=== PATIENT | female | born 2005 | race Two or more races ===

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

== ENCOUNTER 2025-01-02 15:50 | Emergency (ER) | payer OTHER, SELFPAY ==
--- OUTSIDE RECORDS SUMMARY | 2025-01-02 15:52 | XMS_ITS | Clinical Summary ---
Author Organization [facility] Address [address] [place] [address] Care Team Providers Care Branding Machine Tender Name Role Phone Pcp, No Primary Care Provider Unavailabl e Allergies No known active allergies Medications ferrous sulfate, 65 mg elemental, 324 mg (65 mg iron) Delayed-Release tablet Take 324 mg by mouth. Active Active Problems Problem Noted Date Diagnosed Date Generalized anxiety disorder 12/29/2023 Anorexia nervosa, restricting type 02/06/2022 Chronic midline low back pain without sciatica 1 04/05/2020 Adolescent idiopathic scoliosis of thoracolumbar region 01/12/2021 Encounters Date Type Department Care Team Description 12/24/2024 Telephone [facility] Orthopedics [facility] [address] [address] [place] [id number] Kanika Rodríguez Appointment 12/23/2024 Telephone [facility] Orthopedics [facility] [address] [place] [address] [address] [place] [phone] Kanika Grover PA Imaging 12/18/2024 4:30 PM CDT Ancillary Procedure [facility] [id number] [place] [address] 12/18/2024 Travel 12/14/2024 Travel 12/12/2024 4:10 PM CDT Ancillary Procedure [facility] [address] [facility] [address] [place] [address] 12/12/2024 3:00 PM CDT Office Visit [facility] [address] [place] [address] Kanika Grover PA Hip Pain/problem (R) 12/12/2024 1:45 PM CDT Office Visit [facility] [address] [place] [address] Jackie River, DIRECTOR OF HOTEL OPERATIONS Lump (Lump in right groin/x2 days/increased in size since it was initially found) 12/12/2024 Travel 11/10/2024 Orders Only [facility] [address] [place] [address] Sylvain Tamayo MD 1 scan: (1-Ord) DILLON, FERRITIN, 11/08/2024 11/08/2024 Orders Only [facility] Scanner 1 scan: (1-Ord) [facility], [facility], 11/08/2024 11/03/2024 Orders Only [facility] [address] [place] [address] Sylvain Tamayo MD Lab (Outside orders/) from Last 3 Months Immunizations Immunization Administration Dates Next Due COVID-19 vaccine (PublicBeta NTCaratLane 30mcg/0.3mL) KACEY JACOBSON 07/15/2020 DTaP 07/26/2010, 7,04/08/2006,02/05,2005 DTaP-HIB (TriHIBIT) 01/13/2007 HIB PRP-OMP (PedvaxHIB) 02/05/2006 HIB-HepB (Comvax) 2005 HPV 9 (Gardasil 9) 12/08/2015,01/18/2015, 015 Hepatitis A (Peds) 10/07/2007,10/14/2006 Hepatitis A, Unspecified 10/07/2007,10/14/2006 Hepatitis B (Peds) 04/08/2006,2005 Hepatitis B, Unspecified 04/08/2006,2005,0 2005 Hib Conjugate, Unspecified 01/13/2007,02/05/2006 ,2005 Human Papilloma Virus Vaccin e, Unspecified 12/08/2015,01/18/2015,11/22/2014 INFLUENZA, IIV3 PF (AGE >= 6 MO) 12/09/2008,12/02 Inactivated Polio Vaccine 07/26/2010,10/2006,02/05/2006,12/04 Influenza A (H1N1), Inactivated 11/28/19 19,12/03/2017,12/12/2016,11/14,12/26/2013,11/16/2013,02/10/2013 ,12/14/2011,11/12/2010,01/02/2009,01/01,05/06/2006,04/08/2006 Influenza A (H1N1), Inactiva yvrose (Age >=3 Years) 03/09/2009 Influenza Virus, Unspecified 11/13/2022, 12/01/2021,11/29/2021,12/14,11/07/2019 Influenza, IIV3 (Age >=3 years) 01/13/2007,05/06,04/08/2006 Influenza, IIV4 11/29/2021,,11/07/2019,11/27,12/03/2017,12/12/2016,11/14/2014 ,02/10/2013 Influenza,CCIIV4 PRESERV FREE 11/13/2022 Influenza,LAIV3 Live Intrana dalila (Flumist) 12/14/2011,11/12/2010,12/26/2009 Influenza,LAIV4 Live Intrana dalila (Flumist) 11/16/2013 MENINGOCOCCAL VACCINE (MENQU ADFI 0.5ML) 2YO+ POLYSACCHARIDE PF 02/06/2022 MMR 07/26/2010,10/14/2006 Measles 07/26/2010,10/14/2006 Meningococcal Mcv4, Unspecif ied Formulation 01/28/2017 Meningococcal Vaccine (Menactra) 02/06/2022,01/02 Meningococcal, Unspecified 02/06/2022 Mumps 07/26/2010,10/14/2006 Pneumococcal conj 7-Valent (Prevnar 7) 1 03/15/2006,04/08/2006,02/05/2006,12/04 Pneumococcal, Unspecified 09/29/2009(Deferred: P atient Refused) Rotavirus Pentavalent (ROTATEQ) 04/08/2006,02/05,2005 Rotavirus, Unspecified 07/26/2010,10/14/2006,08/2006 Rubella 07/26/2010,10/14/2006 Tdap 01/28/2017,01/28/2007 Varicella Vaccine 07/26/2010,10/14/2006 Family History Medical History Relation Name Comments Good Health Father Unknown Maternal Grandfather Unknown Maternal Grandmother Good Health Mother Relation Name Status Comments Father Maternal Grandfather Maternal Grandmother Mother Social History Tobacco Use Types Packs/Day Years Used Date Smoking Tobacco: Never Passive Smoke Exposure: Never Smokeless Tobacco: Never Tobacco Cessation:Counseling Given: No Alcohol Use Standard Drinks/Week Comments Not Currently 0 (1 standard drink = 0.6 oz pur e alcohol) PHQ-2 Answer Date Recorded PHQ-2 TOTAL SCORE 0 12/29/2023 Social Connections Answer Date Recorded Do you often feel lonely or isolated from those around you? 0 12/12/2024 Financial Resource Strain Answer Date R ecorded Difficulty of Paying Living Expenses 3 12/12/2024 Difficulty of Paying Living Expenses Not on file 12/12/2024 Food Insecurity Answer Date Recorded Do you worry your food will run out before you are able to buy more? 1 12/12/2024 Transportation Needs Answer Date Record ed Does lack of transportation keep you from medica l appointments? 1 12/12/2024 Does lack of transportation keep you from work, meetings or getting things that you need? 1 12/12/2024 Housing Stability Answer Date Recorded What is your housing situation today? 1 12/12/2024 Utilities Answer Date Recorded Do you have trouble paying f or utilities (for example, heat, electricity, water, phone)? 1 12/12/2024 Comments No Sex and Gender Information Value Date Recorded Sex Assigned at Female 02/03/2024 8:57 PM DINKEY OPERATOR [place] Legal Sex Female 1:22 PM CDT Gender Identity Female 02/03/2024 8:57 PM DINKEY OPERATOR [place] Sexual Orientation Not on file Obstetrics History Last Filed Vital Signs Vital Sign Reading Time Taken Comments Blood Pressure 112/74 12/12/2024 3:36 PM CDT MAP 89 Pulse 70 12/12/2024 3:36 PM CDT Temperature 36.7 C (98 F) 12/12/2024 3:36 PM CDT Respiratory Rate 14 12/12/2024 3:36 PM CDT Oxygen Saturation 97% 12/12/2024 3:36 PM CDT Inhaled Oxygen Concentration - - Weight 55.8 kg (123 lb) 12/12/2024 1:51 PM CDT Height 166.2 cm (5' 5.43) 03/30/2024 10:[address] Body Mass Index - - Plan of Treatment Upcoming Encounters Date Type Department Care Team (Late st Contact Info) Description 02/07/2025 3:15 PM DINKEY OPERATOR [place] Appointment [facility] [place] [address] [phone] [id number] [place] [address] [facility] [address] [place], [place] [id number] Health Maintenance Due Date Last Done Comments Well Child Check for age 3-20 09/04/2008 HIV for age 15-65 2020 Hepatitis C screening for age 18-79 10/06/2023 Influenza Vaccine (#1) 2024 3, 11/13/2022, 12/01/2021, Additional history exists Depression screening for age 12+ 12/29/2024 12/30/2023, 12/29/2023 BMI (ht and wt on same day) for age 18+ 03/30/2025 03/30/2024, 12/29/2023 Tetanus booster 01/28/2027 01/28/2017, 01/28/2007 RSV vaccine for adults or (1 - 1-dose 75+ series) 2080 Hepatitis B series for 19+ Completed 04/08, 04/08/2006, 2005, Additional history exists Pneumococcal series for age 6-49 Aged Out 01/13/2007, 04/08/2006, 02/05/2006, Additional history exists No longer eligible based on patient's age to complete this topic HPV series for age 9-45 Completed 12/08/19 16, 12/08/2015, 01/18/2015, Additional history exists Meningococcal series for age 11-21 Completed 02/06/2022, 02/06/2022, 02/06/2022, Additional history exists Procedures Procedure Name Priority Date/Time Associated Diagnosis Comments MR HIP RIGHT WO Routine 12/18/2024 4:56 PM CDT Strain of hip flexor, right, initial encounter Hip pain, right Supsected enlarged lymph node- right femoral XR HIP 1 VIEW W PELVIS RIGHT STAT 12/12/2024 4:14 PM CDT Hip pain, right FERRITIN Routine 11/08/2024 12:00 AM CDT Other fatigue SCAN-LABORATORY REPORT 11/08/2024 12:00 AM CDT from Last 3 Months Results * MR HIP RIGHT WO (12/18/2024 4:56 PM CDT) Anatomical Region Laterality Modality HIPR Magnetic Resonan ce 12/19/2024 7:14 AM CDT Impressions 12/19/2024 7:14 AM CDT 1. Resolution of prior small area of bone marrow edema involving the right medial proximal femur just below the level of the lesser trochanter. No femoral fracture. No new areas of bone edema. 2. Subtle slight periosteal limited edema along the medial right proximal femur below the lesser trochanter and in the region of adductor attachment which may relate to minimal thigh splints (minimal adductor avulsion syndrome periostitis). No significant muscle tearing. 3. No right hip joint effusion. Articular surfaces maintained. Possible tiny tear of the junction of the anterior and anterosuperior acetabular labrum (seen on a single image). Other portions of labrum are intact. Dictated by Jonnathan Reyez MD @ 12/19/2024 6:27:31 AM (Electronically Signed) Narrative 12/19/2024 7:14 AM CDT For Patients: As a result of the Century Cures Act, medical imaging exams and procedure reports are released immediately into your electronic medical record. You may view this report before your referring provider. If you have questions, please contact your health care provider. CLINICAL INDICATION: Right hip pain. Strain of hip flexor. Enlarged lymph node. COMPARISON IMAGING STUDIES: MRI 06/21/2024. Radiographs from 12/12/2024. TECHNICAL: Axial, sagittal and coronal PDFS small field of view images of the right hip. Coronal and axial T1 and PDFS large field of view images of the entire pelvis. 1.5 [facility] MR scanner. FINDINGS: RIGHT HIP: No significant femoral head-neck junction osseous bump. No focal superior acetabular retroversion. The femoral head and acetabular articular surfaces are smooth without focal trickle cartilage defect. There is a possible tiny labral tear seen on a single sagittal PD fat-sat images (e.g. Image number 19 of series 7) present at the junction of the anterior and anterosuperior acetabular labrum. The remainder of the labrum is intact. No paralabral cyst. LEFT HIP: Maintained on the large [id number] images of the entire pelvis. OSSEOUS STRUCTURES: Previously seen small area of mild limited intramedullary bone marrow edema involving the medial right femur just below the lesser trochanter is no longer apparent. There is no new area of intramedullary bone marrow edema. No avascular necrosis. MUSCULOTENDINOUS STRUCTURES AND BURSAE: There is slight thin periosteal limited edema along the medial proximal femur below the lesser trochanter and in the region of adductor attachment which may relate to minimal thigh splints (minimal adductor avulsion syndrome periostitis). No significant tearing. No significant intramuscular edema. Distal gluteal tendons are intact. No trochanteric bursitis. Common hamstring tendons intact. Distal iliopsoas tendons are intact. No iliopsoas bursitis. Conjoined adductor tendons are intact at their medial pubic attachment site. OTHER FINDINGS: Pubic symphysis intact. Sacroiliac joints maintained. INTRAPELVIC CONTENTS: No pelvic fluid collection. Trace pelvic free fluid is likely physiologic. Small inguinal region lymph nodes are unchanged, likely reactive. Procedure Note Jonnathan Reyez MD - 12/19/2024 For Patients: As a result of the Cures Act, medical imagingexams and procedure reports are released immediately into your electronicmedical record. You may view this report before your referring provider.If you have questions, please contact your health care provider. CLINICAL INDICATION: Right hip pain. Strain of hip flexor. Enlarged lymph node. COMPARISON IMAGING STUDIES: MRI 06/21/2024. Radiographs from 12/12/2024. TECHNICAL: Axial, sagittal and coronal PDFS small field of view images of the righthip. Coronal and axial T1 and PDFS large field of view images of theentire pelvis. 1.5 [facility] MR scanner. FINDINGS: RIGHT HIP: No significant femoral head-neck junction osseous bump. No focal superioracetabular retroversion. The femoral head and acetabular articularsurfaces are smooth without focal trickle cartilage defect. There is apossible tiny labral tear seen on a single sagittal PD fat-sat images(e.g. Image number 19 of series 7) present at the junction of the anteriorand anterosuperior acetabular labrum. The remainder of the labrum isintact. No paralabral cyst. LEFT HIP: Maintained on the large [id number] images of the entire pelvis. OSSEOUS STRUCTURES: Previously seen small area of mild limited intramedullary bone marrowedema involving the medial right femur just below the lesser trochanter isno longer apparent. There is no new area of intramedullary bone marrowedema. No avascular necrosis. MUSCULOTENDINOUS STRUCTURES AND BURSAE: There is slight thin periosteal limited edema along the medial proximalfemur below the lesser trochanter and in the region of adductor attachmentwhich may relate to minimal thigh splints (minimal adductor avulsionsyndrome periostitis). No significant tearing. No significantintramuscular edema. Distal gluteal tendons are intact. No trochanteric bursitis. Commonhamstring tendons intact. Distal iliopsoas tendons are intact. Noiliopsoas bursitis. Conjoined adductor tendons are intact at their medialpubic attachment site. OTHER FINDINGS: Pubic symphysis intact. Sacroiliac joints maintained. INTRAPELVIC CONTENTS: No pelvic fluid collection. Trace pelvic free fluid is likely physiologic.Small inguinal region lymph nodes are unchanged, likely reactive. IMPRESSION: 1. Resolution of prior small area of bone marrow edema involving the rightmedial proximal femur just below the level of the lesser trochanter. Nofemoral fracture. No new areas of bone edema. 2. Subtle slight periosteal limited edema along the medial right proximalfemur below the lesser trochanter and in the region of adductor attachmentwhich may relate to minimal thigh splints (minimal adductor avulsionsyndrome periostitis). No significant muscle tearing. 3. No right hip joint effusion. Articular surfaces maintained. Possibletiny tear of the junction of the anterior and anterosuperior acetabularlabrum (seen on a single image). Other portions of labrum are intact. Dictated by Jonnathan Reyez MD @ 12/19/2024 6:27:31 AM (Electronically Signed) us Kanika RODRIGUEZ MR Final Result * XR HIP 1 VIEW W PELVIS RIGHT (12/12/2024 4:14 PM CDT) Anatomical Region Laterality Modality HIPS, HIPR, Pelvis Digital Radio graphy 12/12/2024 5:48 PM CDT Narrative 12/12/2024 5:48 PM CDT For Patients: As a result of the Cures Act, medical imaging exams and procedure reports are released immediately into your electronic medical record. You may view this report before your referring provider. If you have questions, please contact your health care provider. Indication: Right hip pain Technique: One view of the pelvis, one view of the right hip Comparison: Right hip radiographs 04/20/2024, MRI right hip 06/21/2024 Findings/Impression: No acute fracture or malalignment. Hip joint spaces are preserved. The pubic symphysis and sacroiliac joints are congruent. Soft tissues are unremarkable. Dictated by Sabi Sharma MD @ 12/12/2024 5:48:32 PM (Electronically Signed) Procedure Note Sabi Sharma MD - 12/12/2024 For Patients: As a result of the Cures Act, medical imagingexams and procedure reports are released immediately into your electronicmedical record. You may view this report before your referring provider.If you have questions, please contact your health care provider. Indication: Right hip pain Technique: One view of the pelvis, one view of the right hip Comparison: Right hip radiographs 04/20/2024, MRI right hip 06/21/2024 Findings/Impression: No acute fracture or malalignment. Hip joint spaces are preserved. Thepubic symphysis and sacroiliac joints are congruent. Soft tissues areunremarkable. Dictated by Sabi Sharma MD @ 12/12/2024 5:48:32 PM (Electronically Signed) us Kanika RODRIGUEZ GENERAL IMAGING Final Result * SCAN-LABORATORY REPORT (11/08/2024 12:00 AM CDT) us Scanner OTHER Final Result * FERRITIN (11/08/2024 12:00 AM CDT) Blood BLOOD SPECIMEN / Unknown us Sylvain Tamayo MD CHEMISTRY Final Resu lt [employer] [facility] [address] [place] [address], [place] [phone] from Last 3 Months Insurance [facility] Care Teams Branding Machine Tender Relationship Specialty Start Date End Date Pcp, No . PCP - General 11/03/23
--- OUTSIDE RECORDS SUMMARY | 2025-01-02 15:52 | XMS_ITS | Clinical Summary ---
Author Organization [employer] lin Address [address] [place] [address] Care Team Providers Care Data Reviewer Name Role Phone Pcp, No Primary Care Provider [phone] Allergies No known active allergies Medications FLUoxetine (PROzac) 40 MG capsule TAKE 1 CAPSULE BY MOUTH EVERY DAY 02/08/2023 Active ferrous sulfate 324 mg (65 mg iron) TbEC Take 1 tablet (324 mg total) by mouth Active norgestimate-et hinyl estradioL (ORTHO-CYCLEN) 0.25-35 mg-mcg tablet TAKE 1 TABLET BY MOUTH EVERY DAY 02/07/2023 Active Social History Tobacco Use Types Packs/Day Years Used Date Smoking Tobacco: Never Smokeless Tobacco: Never Tobacco Cessation:Counseling Given: Not Answered Comments No Sex and Gender Information Value Date Recorded Sex Assigned at Not on file Legal Sex Female 1:58 PM EST Gender Identity Not on file Sexual Orientation Not on file Last Filed Vital Signs Vital Sign Reading Time Taken Comments Blood Pressure 104/68 03/16/2023 10:00 AM EST Pulse 78 03/16/2023 10:00 AM EST Temperature 36.6 C (97.8 F) 03/16/2023 10:00 AM EST Respiratory Rate 17 03/16/2023 10:00 AM EST Oxygen Saturation 98% 03/16/2023 10:00 AM EST Inhaled Oxygen Concentration - - Weight 52.2 kg (115 lb) 03/16/2023 10:00 AM EST Height 165.1 cm (5' 5) 03/16/2023 10:00 AM EST Body Mass Index 19.14 03/16/2023 10:00 AM EST Body Mass Index Percentile 23.40% 03/16/2023 10: 00 AM EST Growth Chart: [facility] (Girls, 2- 20 Years) Plan of Treatment Not on file Medical Devices Not on file Insurance [facility] Care Teams Data Reviewer Relationship Specialty Start Date End Date Pcp, No PCP - General Family Medicine 03/16/23
--- OUTSIDE RECORDS SUMMARY | 2025-01-02 15:52 | XMS_ITS | Clinical Summary ---
Author Organization [facility] Address [address] [place] [address] Care Team Providers Care Heat Treat Operator Name Role Phone Clinician, Not Found MD Primary Care Provider Un available Source Comments You are receiving this document as you are listed as the primary care provider,follow-up provider, or the patient has been referred to you for consultation.This is in compliance with the Medicare and[facility] EHR Incentive Program,which states Providers who transition their patient to another setting of careor provider of care or refers their patient to another provider of care shouldprovide summary care record for each transition of care or referral. [facility] Allergies No known active allergies Medications ferrous sulfate 324 (65 Fe) MG tablet Take 1 Tablet (324 mg) by mouth. Active Active Problems Problem Noted Date Diagnosed Date Mild restricting type anorexia nervosa Hypokalemia 01/28/2024 Generalized anxiety disorder 12/29/2023 Social History Tobacco Use Types Packs/Day Years Used Date Smoking Tobacco: Never Tobacco Cessation:Counseling Given: Not Answered Alcohol Use Standard Drinks/Week Comments Never 0 (1 standard drink = 0.6 oz pur e alcohol) Comments No Sex and Gender Information Value Date Recorded Sex Assigned at Not on file Legal Sex Female 11:21 AM LINE WORKER Gender Identity Not on file Sexual Orientation Not on file Last Filed Vital Signs Vital Sign Reading Time Taken Comments Blood Pressure 114/73 03/17/2024 10:46 AM LINE WORKER Pulse 74 03/17/2024 10:46 AM LINE WORKER Temperature 36.8 C (98.2 F) 03/17/2024 10:45 AM LINE WORKER Respiratory Rate - - Oxygen Saturation - - Inhaled Oxygen Concentration - - Weight 52.6 kg (116 lb) 03/17/2024 10:45 AM LINE WORKER Height 166.2 cm (5' 5.43) 03/17/2024 10:[address] Body Mass Index 19.05 03/17/2024 10:45 AM LINE WORKER Body Mass Index Percentile 18.27% 03/17/2024 10: 45 AM LINE WORKER Growth Chart: [facility] (Girls, 2- 20 Years) Plan of Treatment Health Maintenance Due Date Last Done Comments Chlamydia 2005 Hep C Screening (Preventive Services) 2005 MenB Immunization Discussion 2005 HIV Screening (Preventive Services) 2021 Adult Preventive Visit 10/06/2023 HepB Vaccine (1) 2024 Influenza Vaccine (#1) 2024 , 11/13/2022, 12/01/2021, Additional history exists DTaP/Tdap/Td Vaccine (7 - Tdap) 01/28/2027 01/28/2017, 07/26/2010, 01/28/2007, Additional history exists Zoster/Shingles Vaccine (1 of 2) 10/06/2055 Hib Vaccine Completed 01/13/2007, 01/01, 02/05/2006, Additional history exists Pneumococcal Vaccine Aged Out 01/13/2007, 04/08/2006, 02/05/2006, Additional history exists No longer eligible based on patient's age to complete this topic HepA Vaccine Completed 10/07/2007, 10/14/2006 IPV (Polio) Vaccine Completed 07/26/2010, 07/08/2006, 02/05/2006, Additional history exists HPV Vaccine Completed 12/08/2015, 01/01, 11/22/2014 MCV4 Vaccine Completed 02/06/2022, 01/28/2017 COVID-19 Vaccine Completed 01/20/2024, 07/15/2020 HGB Completed 01/22/2024 Procedures Procedure Name Priority Date/Time Associated Diagnosis Comments COMPLETE BLOOD COUNT-W/DIFF STAT 01/22/2024 9:08 AM LINE WORKER Mild restricting type anorexia nervosa from Last 3 Months or Most Recently Relevant to Health Maintenance Results * (ABNORMAL) Complete Blood Count-W/Diff (01/22/2024 9:08 AM LINE WORKER) WBC 6.3 3.5 - 10.5 x10(9)/L 01/22/2024 5:05 PM LINE WORKER [facility] RBC 4.82 3.90 - 5.03 x10(12)/L 01/22/2024 5:05 PM LINE WORKER [facility] Hemoglobin 14.6 12.0 - 15.5 g/dL 01/22/2024 5:05 PM LINE WORKER [facility] HCT 44.6(H) 34.9 - 44.5 % 01/22/2024 5:05 PM LINE WORKER [facility] MCV 92.5 80.0 - 100.0 fL 01/22/2024 5:05 PM LINE WORKER [facility] MCH 30.3 27.6 - 33.3 pg 01/22/2024 5:05 PM LINE WORKER [facility] MCHC 32.7 31.5 - 35.2 g/dL 01/22/2024 5:05 PM LINE WORKER [facility] RDW 12.2 11.9 - 15.5 % 01/22/2024 5:05 PM LINE WORKER [facility] Platelets 213 150 - 450 x10(9)/L 01/22/2024 5:05 PM LINE WORKER [facility] Automated NRBC 0 <=0 /100 WBC 01/22/2024 5:05 PM LINE WORKER [facility] Neutrophil Absolute 2.7 1.7 - 7.0 10(9)/L 01/22/2024 5:05 PM LINE WORKER [facility] Lymphocyte Absolute 2.1 1.0 - 4.8 10(9)/L 01/22/2024 5:05 PM LINE WORKER [facility] Monocyte Absolute 1.1(H) 0.2 - 0.9 10(9)/L 01/22/2024 5:05 PM LINE WORKER [facility] Eosinophil Absolute 0.3 0.0 - 0.5 10(9)/L 01/22/2024 5:05 PM LINE WORKER [facility] Basophil Absolute 0.1 0.0 - 0.3 10(9)/L 01/22/2024 5:05 PM LINE WORKER [facility] Immature Granulocyte % 0.2 0.0 - 0.5 % 01/22/2024 5:05 PM LINE WORKER [facility] Blood Venipuncture / Unknown 01/22/2024 9:08 AM LINE WORKER 01/22/2024 4:45 PM [facility] us Tayla Mayers MD LAB_1 Final Result [facility] [address] [place] [address], [facility] from Last 3 Months or Most Recently Relevant to Health Maintenance Insurance [employer] [facility] Care Teams Heat Treat Operator Relationship Specialty Start Date End Date Clinician, Not Found, [place] [address] PCP - General 01/15/24
--- OUTSIDE RECORDS SUMMARY | 2025-01-02 15:52 | XMS_ITS | Clinical Summary ---
Author Organization [facility] Address [address] [place], [place] [id number] Phone Care Team Providers Care Range Ecologist Name Role Phone Elisabeth Becker MD Primary Care Provider [phone] Elisabeth Becker MD Unavailable [phone] Medications * This document contains information received from the source organization and may not represent a complete record from that organization. norgestrel-ethi nyl estradioL (Low-Ogestrel, 28,) 0.3-30 mg-mcg tablet Dose Amount: 1 tab, PO, daily, Dispense Quantity: 84 tab, Refills: 10, Entered: 05/06/23 9:32:00 EST, [id number] 05/06/2023 Active FLUoxetine (PROzac) 10 mg capsule Dose: 10 mg, Dose Amount: 1 cap, PO, daily, Dispense Quantity: 90 cap, Refills: 1, Entered: 09/17/22 17:43:00 EDT, [id number] 09/17/2022 Active FLUoxetine (PROzac) 20 mg capsule Dose: 20 mg, Dose Amount: 1 cap, PO, daily, Dispense Quantity: 90 cap, Refills: 1, Entered: 07/03/22 15:54:00 EDT, [id number] 07/03/2022 Active FLUoxetine (PROzac) 40 mg capsule Dose: 40 mg, Dose Amount: 1 cap, PO, daily, Dispense Quantity: 90 cap, Refills: 1, Entered: 07/15/23 8:54:00 EDT, [id number] 07/15/2023 Active medroxyPROGESTE Kaveh (Provera) 10 mg tablet Dose: 10 mg, Dose Amount: 1 tab, PO, daily, Dispense Quantity: 10 tab, Refills: 3, Entered: 11/12/21 15:05:00 EDT, [id number] 11/12/2021 Active Immunizations Immunization Administration Dates Next Due DTaP 07/26/2010, 7,04/08/2006,02/05,2005 HPV, Unspecified 12/08/2015,01/18/2015, 5 Hep A, Unspecified 10/07/2007,10/14/2006 Hep B, Unspecified 04/08/2006,2005, 006 HiB, unspecified 01/13/2007,02/05/2006, 6 IPV 07/26/2010, 7,02/05/2006,12/04 Influenza, Unspecified 11/13/2022,2021,11/29/2021,12/14,11/07/2019 Meningococcal ACWY, unspecified 02/06/2022 Pfizer Purple Cap SARS-CoV-2 03/14/2021,08/06/19 21,07/15/2020 Pfizer SARS-CoV-2 Bivalent 3 0 mcg/0.3 mL 12/08/2021 Rotavirus, Unspecified 07/26/2010,10/14/2006,08/2006 Tdap 01/28/2017,01/28/2007 Social History Tobacco Use Types Packs/Day Years Used Date Smoking Tobacco: Never Assessed Comments Unknown Sex and Gender Information Value Date Recorded Sex Assigned at Not on file Legal Sex Female 5:32 AM EDT Gender Identity Not on file Sexual Orientation Not on file Last Filed Vital Signs Vital Sign Reading Time Taken Comments Blood Pressure 117/76 07/15/2023 8:41 AM EDT Pulse 111 07/15/2023 8:41 AM EDT Temperature - - Respiratory Rate - - Oxygen Saturation - - Inhaled Oxygen Concentration - - Weight 52 kg (114 lb 10.2 oz) 07/15/2023 8:41 AM EDT Height 166.1 cm (5' 5.39) 07/15/2023 8:41 AM ED T Body Mass Index 18.85 07/15/2023 8:41 AM EDT Body Mass Index Percentile 18.17% 07/15/2023 8:4 1 AM EDT Growth Chart: CDC (Girls, 2- 20 Years) Plan of Treatment Health Maintenance Due Date Last Done Comments Chlamydia and Gonorrhea Screening 2005 HIV Screening 2005 MMR Vaccines (1 of 1 - Standard series) 2006 Varicella Vaccines (1 of 2 - 13+ 2-dose series) 2018 Meningococcal B Vaccine (1 of 2 - Standard) 2021 Hepatitis C Screening 10/06/2023 Influenza Vaccine (#1) 2024 , 12/01/2021, 11/29/2021, Additional history exists DTaP/Tdap/Td Vaccines (7 - Td or Tdap) 01/28/2027 01/28/2017, 07/26/2010, 01/28/2007, Additional history exists Anemia Screening 03/28/2028 03/28/2023 Hepatitis B Vaccines Completed 04/08/2006, 2005, 2005 HIB Vaccines Completed 01/13/2007, 08/2005, 2005 Hepatitis A Vaccines Completed 10/07/2007, 10/15/19 07 IPV Vaccines Completed 07/26/2010, 10/2006, 02/05/2006, Additional history exists Rotavirus Vaccines Aged Out 07/26/2010, 0 10/14/2006, 04/08/2006 No longer eligible based on patient's age to complete this topic HPV Vaccines Completed 12/08/2015, 01/01, 11/22/2014 Meningococcal Vaccine Completed 02/06/2022, 017 Pneumococcal Vaccine: Pediatrics (0 to 5 Years) and At-Risk Patients (6 to 49 Years) Aged Out No longer eligible based on patient's age to complete this topic Procedures Procedure Name Priority Date/Time Associated Diagnosis Comments CBC W/ AUTO DIFFERENTIAL Routine 03/28/2023 11:09 AM EST from Last 3 Months or Most Recently Relevant to Health Maintenance Results * Complete Blood Count with Differential (03/28/2023 11:09 AM EST) nRBC 0.0 0.0 - 0.0 /100 WBC [facility] MPV 10.4 9.5 - 11.7 fL [facility] RDW 12.5 11.9 - 14.6 % [facility] NRBC # 0.00 0.00 - 0.00 K cells/uL [facility] WBC 8.19 4.85 - 9.69 K cells/uL [facility] MCV 90.8 80.5 - 91.8 fL [facility] MCH 29.8 25.7 - 30.6 pg [facility] RBC 4.59 4.07 - 4.90 M cells/uL [facility] MCHC 32.9 31.4 - 34.1 g/dL [facility] Platelets 308 205 - 354 K cells/uL [facility] Hemoglobin 13.7 11.4 - 14.7 g/dL [facility] Hematocrit 41.7 35.3 - 44.1 % [facility] 03/28/2023 11:0 9 AM EST 03/28/2023 3:46 PM EST Sourav Bang MD LAB BLOOD ORDERABLES Final Result Performing Organization Address [facility]/State/[facility] [place] [address], from Last 3 Months or Most Recently Relevant to Health Maintenance Insurance Care Teams Range Ecologist Relationship Specialty Start Date End Date Elisabeth Becker MD [address] [address] PCP - General 10/11/21 Elisabeth Becker MD [address] [address] PCP - Clinical PCP 10/11/21
--- OUTSIDE RECORDS SUMMARY | 2025-01-02 15:52 | XMS_ITS | Encounter Summary ---
Author Organization [facility] Address [address] [place] [address] Drive [address] [place] [address] Phone Care Team Providers Care Election Assistant Name Role Phone Elisabeth Becker MD Primary Care Provider German Castillo MD, DDS Unavailable [email or web address] Elisabeth Becker MD Unavailable [phone] Amada Beebe CNP Primary Care Provider + Encounter Details Date Type Department Care Team (Late st Contact Info) Description 03/22/2022 Procedure Pass MRI, [facility] [place] [address] [facility], [address] [place], [place] [phone] Social History Tobacco Use Types Packs/Day Years Used Date Smoking Tobacco: Never Smokeless Tobacco: Never Comments Unknown Sex and Gender Information Value Date Recorded Sex Assigned at Female 07/02/2024 10:42 AM EDT Legal Sex Female 2:33 PM EDT Gender Identity Female 07/02/2024 10:42 AM EDT Sexual Orientation Straight 07/02/2024 10 :42 AM EDT documented as of this encounter Plan of Treatment Upcoming Encounters Date Type Department Care Team (Late st Contact Info) Description 02/18/2025 10:30 AM EST Office Visit Dane CAVAZOS [facility] [address] [facility], [address] [place], [place] [phone] Adrienne Brandon MD [address] [facility] [address] [place] [address] [email or web address] documented as of this encounter Visit Diagnoses Not on filedocumented in this encounter Care Teams Election Assistant Relationship Specialty Start Date End Date Elisabeth Becker MD [address] [place] [address] [email or web address] PCP - General Pediatrics 11/01/19 09/27/24 Amada Beebe CNP [address] [place] [address] [email or web address] PCP - General Nurse Practitioner 09/28/24 German Castillo MD, DDS [address] [place] [address] [email or web address] baccarat manager 04/18/20 Elisabeth Becker MD [address] [place] [address] [email or web address] Insurance Assigned Provider 06/07/23 documented as of this encounter Additional Source Comments The information contained in this document represents components of the legal health record. It is not the complete legal health record.[facility]
--- OUTSIDE RECORDS SUMMARY | 2025-01-02 15:52 | XMS_ITS | Encounter Summary ---
Author Organization [facility] Address [address] [place] [address] Drive [address] [place] [address] Phone Care Team Providers Care Bituminous Distributor Operator Name Role Phone Elisabeth Becker MD Primary Care Provider German Castillo MD, DDS Unavailable [email or web address] Elisabeth Becker MD Unavailable [phone] Amada Beebe CNP Primary Care Provider + Encounter Details Date Type Department Care Team (Late st Contact Info) Description 01/12/2021 Procedure Pass MRI, [facility] [place] [address] [facility], [address] [place], [place] [phone] Social History Tobacco Use Types Packs/Day Years [...] 10:30 AM EST Office Visit Dane CAVAZOS [facility] [address] [facility], [address] [place], [place] [phone] Adrienne Brandon MD [address] [facility] [address] [place] [address] [email or web address] documented as of this encounter Visit Diagnoses Not on filedocumented in this encounter Care Teams Bituminous Distributor Operator Relationship Specialty Start Date End Date Elisabeth Becker MD [address] [place] [address] [email or web address], [facility] PCP - General Pediatrics 11/01/19 09/27/24 Amada Beebe CNP [address] [place] [address] [email or web address] PCP - General Nurse Practitioner 09/28/24 German Castillo MD, DDS [address] [place] [address] [email or web address] plate stacker hand 04/18/20 Elisabeth Becker MD [address] [place] [address] [email or web address], [facility] Insurance Assigned Provider 06/07/23 documented as of this encounter Additional Source Comments The information contained in this document represents components of the legal health record. It is not the complete legal health record.[facility]
--- OUTSIDE RECORDS SUMMARY | 2025-01-02 15:52 | XMS_ITS | Clinical Summary ---
Author Organization [facility] Address [address] [place] [address] Care Team Providers Care Plaster Mechanic Name Role Phone Elisabeth Becker MD Primary Care Provider [phone] Allergies No known active allergies Social History Tobacco Use Types Packs/Day Years Used Date Smoking Tobacco: Never Assessed Comments Unknown Sex and Gender Information Value Date Recorded Sex Assigned at Female 04/08/2022 9:29 PM EST Legal Sex Female 9:25 PM EST Gender Identity Female 04/08/2022 9:29 PM EST Sexual Orientation Not on file Last Filed Vital Signs Vital Sign Reading Time Taken Comments Blood Pressure 125/82 04/08/2022 9:54 PM EST Pulse 88 04/08/2022 9:54 PM EST Temperature 36.3 C (97.4 F) 04/08/2022 9:54 PM EST Respiratory Rate 18 04/08/2022 9:54 PM EST Oxygen Saturation 99% 04/08/2022 9:54 PM EST Inhaled Oxygen Concentration - - Weight 52 kg (114 lb 10.2 oz) 04/08/2022 9:54 PM EST Height - - Body Mass Index - - Plan of Treatment Health Maintenance Due Date Last Done Comments Blood Pressure 2005 Depression Screening 2009 Chlamydia and Gonorrhea Screening 2020 Meningococcal B Vaccines (1 of 2 - Standard) 2021 Hepatitis C Screening 10/06/2023 COVID-19 Vaccine (2 - 2024- season) 2024 07/15/2020 Influenza Vaccine (#1) 2024 2, 12/14/2020, 11/07/2019, Additional history exists DTaP,Tdap,and Td Vaccines (7 - Td or Tdap) 01/28/2027 01/28/2017, 07/26/2010, 01/13/2007, Additional history exists Meningococcal Vaccines Completed 02/06/2022, 2016 Pneumococcal Vaccine Aged Out No long er eligible based on patient's age to complete this topic Insurance [facility] [place] DORIAN JUÁREZ [place] [id number] [place] JU[place]RE[place] [phone] [facility] Care Teams Plaster Mechanic Relationship Specialty Start Date End Date Elisabeth Becker MD [address] [place] [address] PCP - General Pediatric Medicine 04/08/22
--- OUTSIDE RECORDS SUMMARY | 2025-01-02 15:53 | XMS_ITS | Clinical Summary ---
Author Organization [facility] Address [address] [facility] [address] [place] [address] Phone Care Team Providers Care Senior Media Planner Name Role Phone German Castillo MD, DDS Unavailable [email or web address] Elisabeth Becker MD Unavailable [phone] Amada Beebe CNP Primary Care Provider + Allergies Active Allergy Reactions Criticality Noted Date Comments Pollen Extracts 04/24/2023 Medications ferrous sulfate 324 mg (65 mg [place] iron) TbEC Take 324 mg by mouth daily with breakfast. Active Active Problems Problem Noted Date Diagnosed Date Dysmenorrhea 2024 Assessment & Plan (2024 6:01 AM EDT): Orders: TSH with reflex; Future CBC and differential; Future Basic metabolic panel; Future Ambulatory [facility] Gynecology (Benign) E-Consult Takes iron supplements 2024 Assessment & Plan (2024 6:01 AM EDT): Orders: Iron and iron binding capacity; Future Ferritin; Future Encounter to establish care 09/28/2024 Assessment & Plan (2024 6:01 AM EDT): Anorexia nervosa, restricting type 02/06/2022 Assessment & Plan (2024 6:01 AM EDT): Orders: Ambulatory [facility] Gynecology (Benign) E-Consult Chronic midline low back pain without sciatica 1 04/05/2020 Pain in thoracic spine 01/12/2021 Assessment & Plan (2024 6:01 AM EDT): Adolescent idiopathic scoliosis of thoracolumbar region 01/12/2021 Assessment & Plan (2024 6:01 AM EDT): Immunizations Immunization Administration Dates Next Due COVID-19 (Pre-12/23) Pfizer Vaccine, mRNA, PF 07/15/2020 DTaP 07/26/2010, 7,04/08/2006,02/05,2005 [id number] FORMULATION 019,12/03/2017,12/12/2016,11/14,12/26/2013,11/16/2013,02/10/2013 ,12/14/2011,11/12/2010,01/13/2007,03/0 08/2006,04/08/2006 HPV9 12/08/2015,01/18/2015,11/22/2014 Hepatitis A, ped/adol, 2 dose 10/07/2007, 007 Hepatitis B, unspecified formulation 04/08/2006, 2005,2005 Hib, unspecified formulation 01/13/2007,02/06/20 06,2005 IPV 07/26/2010, 7,02/05/2006,12/04 Influenza Quadrivalent MDCK Preservative Free IM 11/13/2022 Influenza Quadrivalent Prese rvative Free IM 11/29/2021,12/14/2020,11/07/2019 Measles 07/26/2010,10/14/2006 Meningococcal Conjugate Quad rivalent, MenACWY-TT (MCV4) 02/06/2022 Meningococcal MCV4, unspecif ied Formulation 01/28/2017 Meningococcal MCV4P 02/06/2022 Mumps 07/26/2010,10/14/2006 Rotavirus, unspecified formulation 07/26/2010,,04/08/2006 Rubella 07/26/2010,10/14/2006 Tdap 01/28/2017 Zoster recombinant 07/26/2010,10/14/2006 Family History Medical History Relation Comments No Known Problems Father No Known Problems Mother No Known Problems Sister Macular degeneration Neg Hx Relation Status Comments Father Alive Mother Alive Sister Alive Social History Tobacco Use Types Packs/Day Years Used Date Smoking Tobacco: Never Smokeless Tobacco: Never Tobacco Cessation:Counseling Given: Not Answered Alcohol Use Standard Drinks/Week Comments Yes 0 (1 standard drink = 0.6 oz pur e alcohol) occasional Education Answer Date Recorded Are you interested in more education? Not on shirley e 06/28/2022 Are you concerned about learning? Not on file 06/28/2022 No 06/28/2022 No 06/28/2022 Digital Access Answer Date Recorded No 07/27/2022 No 07/27/2022 Reliable internet access at home? Not on file 07/27/2022 Device with a working camera? Not on file Intimate Partner Violence Answer Date R ecorded Denied Basic Needs Not on file 09/28/2024 In the past 12 months have y ou been in a relationship with a person who hurts, threatens, or tries to control you? No 09/28/2024 Worried food would run out Not on file 09/28 In the past 12 months have y ou been in a relationship with a person who hurts, threatens, or tries to control you? No 09/28/2024 Comments No Sex and Gender Information Value Date Recorded Sex Assigned at Female 07/02/2024 10:42 AM EDT Legal Sex Female 2:33 PM EDT Gender Identity Female 07/02/2024 10:42 AM EDT Sexual Orientation Straight 07/02/2024 10 :42 AM EDT Last Filed Vital Signs Vital Sign Reading Time Taken Comments Blood Pressure 117/75 09/28/2024 9:38 AM EDT Pulse 75 09/28/2024 9:38 AM EDT Temperature 36.1 C (97 F) 09/28/2024 9:38 AM EDT Respiratory Rate - - Oxygen Saturation 99% 09/28/2024 9:38 AM EDT Inhaled Oxygen Concentration - - Weight 54.5 kg (120 lb 3.2 oz) 09/28/2024 9:38 A M EDT Height 165.1 cm (5' 5) 09/28/2024 9:38 AM EDT Body Mass Index 20 09/28/2024 9:38 AM EDT Body Mass Index Percentile 29.31% 09/28/2024 9:3 8 AM EDT Growth Chart: CDC (Girls, 2- 20 Years) Plan of Treatment Upcoming Encounters Date Type Department Care Team (Late st Contact Info) Description 02/18/2025 10:30 AM EST Office Visit Dane CAVAZOS [address], [address] [place] [phone] Adrienne Brandon MD [address] [place] [address] [email or web address] Health Maintenance Due Date Last Done Comments VARICELLA VACCINES (1 of 2 - 13+ 2-dose series) 2018 HEPATITIS C SCREENING 10/06/2023 HIV ONE-TIME SCREENING (18-65 YEARS) 10/06/2023 INFLUENZA VACCINE (#1) 2024 , 11/29/2021, 12/14/2020, Additional history exists COVID-19 VACCINE ( season) 2024 03/19/2023, 12/08/2021, 03/14/2021, Additional history exists BMI ASSESSMENT 09/28/2025 09/28/2024 DEPRESSION SCREENING 09/28/2025 09/28/2024, 02/06/20 23 DEVELOPMENTAL/BEHAVIORAL SCREENING (PHQ, PSC, or SWYC) 09/28/2025 09/28/2024, 02/05/2023, 02/05/2023 SMOKING Hx and SMOKELESS TOBACCO SCREENING 09/28/2025 09/28/2024 COMBINED DTaP,Tdap,Td (7 - Td or Tdap) 01/28/2027 01/28/2017, 07/26/2010, 01/28/2007, Additional history exists HEPATITIS B VACCINES Completed 04/08/2006, 2005, 2005 HIB VACCINES Completed 01/13/2007, 1208/2005, 2005 HEPATITIS A VACCINES Completed 10/07/2007, 10/15/19 07 MMR VACCINES Completed 07/26/2010, 10/14/2006 HPV VACCINES Completed 12/08/2015, 01/01, 11/22/2014 MENINGOCOCCAL VACCINES (ACWY) Completed 02/06/2022, 02/06/2022, 01/28/2017 ADOLESCENT UNIVERSAL LIPID SCREENING Completed 09/09/2023 MENINGOCOCCAL VACCINES (B) Completed 10/14/2023, PNEUMOCOCCAL VACCINES (0-49 years) Aged Out No longer eligible based on patient's age to complete this topic Medical Devices Not on file Procedures Procedure Name Priority Date/Time Associated Diagnosis Comments LIPID PANEL Routine 09/09/2023 3:33 PM EDT Annual physical exam from Last 3 Months or Most Recently Relevant to Health Maintenance Results * Lipid panel (09/09/2023 3:33 PM EDT) HDL 60 35 - 100 mg/dL [facility] CHOLESTEROL 155 <200 mg/dL [facility] TRIGLYCERIDES 72 40 - 150 mg/dL [facility] LDL 81 50 - 129 mg/dL [facility] CARDIAC RISK RATIO 2.6 0.0 - 5.0 M [facility] NON-HDL CHOLESTEROL 95 mg/dL [facility] Comment:NCEP ATP III guideli jacquie suggest a non-HDL cholesterol goal 30 mg/dl higher than the patient-specific LDL goal. Blood 09/09/2023 3:33 PM EDT 09/09/2023 3:49 PM EDT Elisabeth Becker MD LAB BLOOD BKR ORDERABL ES Final Result [facility] [address] [place] [address] from Last 3 Months or Most Recently Relevant to Health Maintenance Insurance ([place]) [address] [employer]YEES FAM[employer] FAM[employer] [facility] [employer] [facility] EMPLOYEES FAMILY [facility] [facility] EMPLOYEES FAMILY EMPLOYEES FAMILY Member Subscriber Plan / Payer ( fective 2019-Present) Name:Ani Marr Relation to Subscriber:Self Name:Ani Marr Payer ID:[id number] (NAIC) Type:PPO Address: [employer] CLAIMS [address] DORIAN JUÁREZ MD [facility] EMPLOYEES FAMILY [employer] EM[employer]ES FAMILY Member Subscriber Plan / Payer ( fective 2019-Present) Name:Ani Marr Relation to Subscriber:Self Name:Ani Marr Payer ID:[id number] (NAIC) Type:PPO Address: [employer] CLAIMS [address] DORIAN JUÁREZ MD [facility] EMPLOYEES FAMILY [employer] [facility] EM[employer]ES FAMILY Member Subscriber Plan / Payer ( fective 2019-Present) Name:Ani Marr Relation to Subscriber:Self Name:Ani Marr Payer ID:[id number] (NAIC) Type:PPO Address: [employer] CLAIMS [address] DORIAN JUÁREZ [place] [address] EMPLOYEES FAMILY [employer] EMPLOYEES FAMILY Care Teams Senior Media Planner Relationship Specialty Start Date End Date Amada Beebe CNP [address] [place] [address] [email or web address] PCP - General Nurse Practitioner 09/28/24 German Castillo MD, DDS [email or web address] [email or web address] THE [facility] electric spot welder 04/18/20 Elisabeth Becker MD [address] [facility] [facility] [facility] [address] [place] [address] [email or web address] Insurance Assigned Provider 06/07/23 Additional Source Comments The information contained in this document represents components of the legal health record. It is not the complete legal health record.[facility]
[2025-01-02 15:59] VITALS: BP 115/82; PULSE 95; RESP 18; TEMP 37; O2SAT 97; BMI 19.6
[2025-01-02] MEDS: ONDANSETRON ODT 4 MG TAB PO (16:49)
--- NOTE | 2025-01-02 17:25 | ED_ITS ---
HPI - General Adult General Date Seen: 01/02/25 Chief complaint: Nausea/Vomiting Stated complaint: extremely nauseous Time Seen by Provider: 01/02/25 16:38 Source: patient Mode of arrival: ambulatory Limitations: no limitations History of Present Illness HPI narrative: Patient is a 19-year-old female with no medical issues presenting to the emergency department for nausea and vomiting. She states she drank heavily last night and blacked out. She woke up today and has been nauseated all day. She states she stood up fast today and caused her to black out. She still states he feels mildly lightheaded. Has not been able to eat or drink anything without feeling like she has to throw up. Has not had any fevers, chills, chest pain, diarrhea, constipation. Last vomited an hour prior to arrival. States the syncopal episode was about 2 hours prior to arrival. No other concerns noted. Does not take any medications. Related Data Home Medications ?Medication ?Instructions ?Recorded ?Confirmed ferrous sulfate 325 mg (65 mg 325 mg PO DAILY 01/02/25 01/02/25 iron) tablet (iron) Allergies Allergy/AdvReac Type Severity Reaction Status Date / Time No Known Drug Allergies Allergy Verified 01/02/25 15:59 Review of Systems Status of ROS: Reports: 10 or more systems reviewed and unremarkable except as noted in History and below [facility] Social History Smoking Status: Former smoker Do you use any of these nicotine containing products: None How often do you have a drink containing alcohol: 2-4 times a month How often do you have six or more drinks on one occasion: Monthly AUDIT-C Alcohol total score: 4 Non-prescribed substance use: denies use Exam Narrative: Exam Narrative: Const: Well-nourished, Well-developed, in mild distress Eyes: PERRL, no conjunctival injection, and symmetrical lids HENT: Atraumatic external nose and ears. Moist mucous membranes. Neck: Symmetric, trachea midline, No thyromegaly. CVS: RRR, No murmurs or gallops. Peripheral pulses 2+ and equal in all extremities RESP: Unlabored respiratory effort. Clear to auscultation bilaterally. GI: Nontender/Nondistended, No rebound or guarding. MSK:Extremities w/o deformity, Normal Active ROM Skin: Warm, Dry. No rashes or lesions. Neuro: Normal Muscle tone, No focal neurological deficits. Psych: Awake, Alert, & Oriented x3. Appropriate mood and affect. Const: Vital Signs, click to edit/add: Vital Signs - 24 hr 01/02/25 15:59 Temperature 98.6 F Pulse Rate [Right Pulse Oximeter] 95 Respiratory Rate 18 Blood Pressure [Ri ght Upper Arm] 115/82 Pulse Oximetry 97 Oxygen Delivery Me thod Room Air Course Vital Signs Vital signs: Initial Vital Signs Temperature 98.6 F 01/02/25 15:59 Temperature Source Temporal Artery Scan 01/02/25 15:59 Pulse Rate 95 01/02/25 15:59 Respiratory Rate 18 01/02/25 15:59 Blood Pressure 115/82 01/02/25 15:59 Blood Pressure Mean 93 01/02/25 15:59 Blood Pressure Position Sitting 01/02/25 15:59 Pulse Oximetry 97 01/02/25 15:59 Oxygen Delivery Method Room Air 01/02/25 15:59 Vital Signs Temperature 98.6 F 01/02/25 15:59 Pulse Rate 95 01/02/25 15:59 Respiratory Rate 18 01/02/25 15:59 Blood Pressure 115/82 01/02/25 15:59 Pulse Oximetry 97 01/02/25 15:59 Oxygen Delivery Method Room Air 01/02/25 15:59 Temperature 98.6 F 01/02/25 15:59 Pulse Rate 95 01/02/25 15:59 Respiratory Rate 18 01/02/25 15:59 Blood Pressure 115/82 01/02/25 15:59 Pulse Oximetry 97 01/02/25 15:59 Oxygen Delivery Method Room Air 01/02/25 15:59 Medications Administered Medications: Discontinued Medications Generic Name Dose Route Start Last Admin Trade Name Freq PRN Reason Stop Dose Admin Ondansetron HCl 4 mg 01/02/25 16:43 01/02/25 16:49 Ondansetron Odt 4 Mg Tab PO 01/02/25 16:44 4 mg ONCE ONE Administration Medical Decision Making MDM Narrative Medical decision making narrative: Patient is a 19 year old female presenting to emergency department for nausea and vomiting. Considering her recent heavy drinking yesterday she is likely suffering from veisalgia. When she stood up fast after be dehydrated she likely had a vasovagal syncope. She is not having any other symptoms currently. Will try Zofran. I do not believe lab work is necessary. Will do an EKG. EKG showed no acute concerning abnormalities. Her syncopal episode was likely vasovagal. She is feeling much better after the Zofran and p.o. challenge was successful. She feels well for discharge. Will prescribe her Zofran via instymeds. ECG Data Attestation: I personally reviewed and interpreted this ECG as follows: Prior ECG tracings: not available for review Interpretation: Normal sinus rhythm with a rate of 82 beats per minute, normal intervals, normal axis, no ST or T-wave abnormalities. Discharge Plan Discharge Clinical Impression: Nausea & vomiting Patient Disposition: Home, Self-Care Condition: Improved Instructions: Acute Nausea and Vomiting (DC) Additional Instructions: Your syncopal episode was likely from being dehydrated after drinking heavily the night before. Breast her symptoms are also likely from being hungover. Use the Zofran as needed for nausea. Prescriptions: No Action ferrous sulfate [iron] 325 mg (65 mg iron) tablet 325 mg PO DAILY Follow Up/Referrals: Provider,Not a Local [Primary Care Provider, Family Practice] Stand Alone Forms: [facility] Info Instructions
[2025-01-02 17:48] VITALS: BP 113/69; PULSE 84; RESP 16; O2SAT 96
== END 2025-01-02 17:49 | disposition home or self-care (01) ==
PROVIDERS: Emergency Provider Student in an Organized Health Care Education/Training Program
DX: R11.2 Nausea with vomiting, unspecified (principal); R55 Syncope and collapse
CPT/HCPCS: 99283; A9270